=== PATIENT | male | born 1945 | race Caucasian/White ===

== ENCOUNTER 2017-11-07 12:47 | Outpatient (RCR) | payer BC, MEDICARE, SELFPAY | END 2017-11-16 23:59 | disposition home or self-care (01) | LOC: PRC 12:47 | PROVIDERS: Visit Provider Internal Medicine | DX: J44.9 Chronic obstructive pulmonary disease, unspecified (principal); Z51.89 Encounter for other specified aftercare ==

== ENCOUNTER 2017-12-04 10:18 | Outpatient (RCR) | payer BC, MEDICARE, SELFPAY | END 2017-12-17 23:59 | disposition home or self-care (01) | LOC: PRC 10:18 | PROVIDERS: Visit Provider Internal Medicine | DX: J44.9 Chronic obstructive pulmonary disease, unspecified (principal); Z51.89 Encounter for other specified aftercare | CPT/HCPCS: G0424 ==

== ENCOUNTER 2017-12-18 12:47 | Outpatient (RCR) | payer BC, MEDICARE, SELFPAY | END 2018-01-16 23:59 | disposition home or self-care (01) | LOC: PRC 12:47 | DX: J44.9 Chronic obstructive pulmonary disease, unspecified (principal) | CPT/HCPCS: G0424 ==

== ENCOUNTER 2018-01-14 02:00 | Outpatient (RCR) | payer BC, MEDICARE, SELFPAY | END 2018-01-16 23:59 | disposition home or self-care (01) | LOC: PRC 02:00 | PROVIDERS: Visit Provider Family Medicine | DX: J44.9 Chronic obstructive pulmonary disease, unspecified (principal); Z51.89 Encounter for other specified aftercare | CPT/HCPCS: G0424 ==

== ENCOUNTER 2018-01-21 09:54 | Outpatient (RCR) | payer BC, MEDICARE, SELFPAY | END 2018-02-16 23:59 | disposition home or self-care (01) | LOC: PRC 09:54 | PROVIDERS: Visit Provider Family Medicine | DX: J44.9 Chronic obstructive pulmonary disease, unspecified (principal); Z51.89 Encounter for other specified aftercare | CPT/HCPCS: G0424 ==

== ENCOUNTER 2018-03-20 11:56 | Outpatient (RCR) | payer OTHER, SELFPAY | END 2018-04-17 16:29 | LOC: PRC 11:56 | PROVIDERS: Visit Provider Family Medicine | DX: J44.9 Chronic obstructive pulmonary disease, unspecified (principal); Z51.89 Encounter for other specified aftercare | CPT/HCPCS: G0424 ==

== ENCOUNTER 2018-04-18 15:22 | Outpatient (RCR) | payer BC, MEDICARE, SELFPAY | END 2018-05-17 23:59 | disposition home or self-care (01) | LOC: PRC 15:22 | PROVIDERS: Visit Provider Family Medicine | DX: J44.9 Chronic obstructive pulmonary disease, unspecified (principal); Z51.89 Encounter for other specified aftercare | CPT/HCPCS: G0424 ==

== ENCOUNTER 2018-05-18 05:53 | Outpatient (RCR) | payer OTHER, SELFPAY | END 2018-06-16 23:59 | disposition home or self-care (01) | LOC: PRC 05:53 | PROVIDERS: Visit Provider Family Medicine | DX: J44.9 Chronic obstructive pulmonary disease, unspecified (principal); Z51.89 Encounter for other specified aftercare | CPT/HCPCS: G0424 ==

== ENCOUNTER 2018-06-17 04:38 | Outpatient (RCR) | payer OTHER, SELFPAY | END 2018-07-17 23:59 | disposition home or self-care (01) | LOC: PRC 04:38 | PROVIDERS: Visit Provider Family Medicine | DX: J44.9 Chronic obstructive pulmonary disease, unspecified (principal); Z51.89 Encounter for other specified aftercare | CPT/HCPCS: G0424 ==

== ENCOUNTER 2024-01-26 15:37 | Outpatient (CLI) | payer OTHER, SELFPAY ==
--- NOTE | 2024-01-26 14:45 | DI.RAD_ITS ---
Exam(s) XR HIP LT COMPLETE AP PELVIS EXAM: XR HIP LT COMPLETE AP PELVIS CLINICAL HISTORY: L hip pain. TECHNIQUE: 2D digital imaging was performed. Two views. COMPARISON: No exams were available for comparison FINDINGS: BONES: No acute fracture is present. No bony destructive lesion is seen. JOINTS: No dislocation present. Moderate to severe narrowing of the left hip joint space. Mild megan articular spurring. The right hip joint space is maintained. Pubic symphysis unremarkable. SOFT TISSUE: Vascular calcifications. Vasectomy clips. Surgical clips low pelvis. High-density mat erial noted in sigmoid colon within diverticula. IMPRESSION: Advanced degenerative changes of the left hip. DATA REPOSITORY: RADIATION DOSE DELIVERED:
== END 2024-01-26 15:38 | disposition home or self-care (01) ==
LOC: DIORS 15:37
PROVIDERS: Visit Provider Physician Assistant
DX: M16.12 Unilateral primary osteoarthritis, left hip (principal)
CPT/HCPCS: 73502

== ENCOUNTER 2024-04-30 00:26 | Outpatient (CLI) | payer OTHER, SELFPAY ==
[2024-04-30 12:21] LABS: HCT 41.1 % (40.0-50.0); HGB 13.5 g/dL (13.5-17.5); MCH 31.2 pg (27.0-33.0); MCHC 32.8 % (32.0-36.0); MCV 95 fL (80-95); MPV 9.5 fL (8.0-11.0); Platelet Count 180 10^3/uL (130-400); RBC 4.33 10^6/uL (4.36-5.78); RDW 11.9 % (11.8-14.1); RDW-SD 41.3 fL; WBC 4.91 10^3/uL (4.4-10.8)
[2024-04-30 13:02] LABS: Anion Gap 9.3 mmol/L (3-11); BUN 28 mg/dL (7-18); CO2 25.7 mmol/L (21.0-32.0); CREATININE 1.6 mg/dL (0.70-1.30); Calcium 9.2 mg/dL (8.5-10.1); Chloride 105 mmol/L (98-107); Estimated GFR 43.29 (mL/min/1.73m2); Glucose 126 mg/dL (74-106); Potassium 4.9 mmol/L (3.5-5.1); Sodium 140 mmol/L (136-145)
== END 2024-04-30 00:27 | disposition home or self-care (01) ==
PROVIDERS: Visit Provider Student in an Organized Health Care Education/Training Program
DX: M16.12 Unilateral primary osteoarthritis, left hip (principal); Z01.818 Encounter for other preprocedural examination
CPT/HCPCS: 36415; 80048; 85027

== ENCOUNTER 2024-05-04 08:20 | Day surgery (SDC) | payer OTHER, SELFPAY ==
[2024-05-04] VITALS (29 sets, daily range): BP systolic 101–164; BP diastolic 50–124; PULSE 42–68; RESP 12–31; TEMP 36.2–36.9; O2SAT 94–100; BMI 28.1
--- NOTE | 2024-05-04 08:30 | DI.RAD_ITS ---
Exam(s) XR HIP LT IN OR EXAM: XR HIP LT IN OR CLINICAL HISTORY: Osteoarthritis of left hip. TECHNIQUE: 2D and realtime digital imaging was performed. COMPARISON: CR XR HIP LT COMPLETE AP PELVIS from 01/26/2024 FINDINGS: Hard copy images show placement of a left hip prosthesis. The alignment appears satisfactory. Please see procedure note for details. Fluoro time: 27.2seconds RADIATION DOSE DELIVERED: Ka,r=2.98 mGy
[2024-05-04] MEDS: Acetaminophen 500 MG TAB 1000 MG PO (09:13)
[2024-05-04] MEDS: Celecoxib 200 MG CAP 400 MG PO (09:13)
--- NOTE | 2024-05-04 09:22 | W.PM.DSUDISC ---
Date of service: 05/04/24 Discharge Plan Disposition Patient Disposition: Home Condition: Good Discharge Details Reason For Visit: left hip DJD Attending Provider: Macario Allison Primary Care Provider: [facility],[place] Home Meds and New Rx's Prescriptions: New meloxicam 15 mg tablet 15 mg PO DAILY Qty: 30 1RF Rx Instructions: Take one tablet daily for pain and inflammation aspirin 81 mg tablet,delayed release (DR/EC) 81 mg PO BID 30 Days Qty: 60 0RF pantoprazole 40 mg tablet,delayed release (DR/EC) 40 mg PO DAILY Qty: 14 0RF dexamethasone 4 mg tablet 4 mg PO DAILY Qty: 2 0RF Rx Instructions: Take one tablet once daily for two days docusate sodium [Colace] 100 mg capsule 100 mg PO BID Qty: 30 0RF oxycodone 5 mg tablet 5 mg PO Q6H PRNQty: 12 0RF Rx Instructions: Take one tablet up to every 6 hours as needed for severe postoperative pain acetaminophen 500 mg tablet 1,000 mg PO Q8H PRN Qty: 90 0RF Rx Instructions: Take two tablets up to every 8 hours as needed for pain Continued PreserVision AREDS 4,296 mcg-226 mg-90 mg capsule 1 cap PO BID amlodipine 5 mg tablet 10 mg PO DAILY albuterol sulfate 90 mcg/actuation HFA aerosol inhaler 2 puff inhalation Q6H PRN carboxymethylcellulose sodium 0.5 % drops 1 drp ophthalmic (eye) QID losartan 50 mg tablet 100 mg PO DAILY simethicone [Gas Relief (simethicone)] 80 mg tablet,chewable 80 mg PO BID-QID PRN omega 2-yxd-sdm-fish oil [Fish Oil] 1,000 (120-180) mg capsule 1 cap PO BID rosuvastatin 40 mg tablet 40 mg PO HS Discontinued acetaminophen 500 mg tablet 1,000 mg PO Q8H PRN PRN aspirin 81 mg tablet,delayed release (DR/EC) 81 mg PO DAILY Discharge Instructions Additional Instructions: Total Hip Discharge Instructions Activity: The most important activity is to walk. You should try to take short walks a few times a day. You have no restrictions on movement or positioning, but do not try to force what you do. You will find some stiffness and weakness with hip flexion (lifting your knee). Do not try to strengthen this too early, continue to practice walking and stairs and this will come. - Outpatient physical therapy can be helpful to help return you to a normal gait and improve your flexibility and strength. This can start around 2 weeks. For some patients, it?s not necessary. Usually this is determined at the time of discharge or at the first post-operative visit. - You should wear the LUISITO hose on both legs for 2 weeks. Dressing: Keep the surgical dressing in place for at least one week. After the first week it may be removed and replace with light gauze and tape or nothing. It may get wet after 3 days but avoid soaking the dressing. If it gets wet, just lightly pat dry. It is important to always keep some gauze between skin folds, especially when you are sitting. Spend some time with the wound exposed when you are lying flat as the incision does wrinkle onto itself. Medications: - You should take Tylenol and an anti-inflammatory Meloxicam as your primary pain control medications. If the Meloxicam is too expensive or not covered, please call the office for another alternative (Advil/Ibuprofen or Naproxen/Aleve). - You have been prescribed a stronger pain medication Oxycodone for breakthrough pain, take as needed as prescribed. - You have also been prescribed a stomach acid reduction agent Pantoprozole to help reduce stomach acid and reflux. - You have also been prescribed Decadron to help with post-operative nausea and pain. You will take this for two days starting tomorrow. - You will be taking Aspirin 81mg twice a day for DVT prevention unless instructed otherwise. - If you have constipation you should take Colace (which has been prescribed) or Miralax (which is available [id number]). It takes most people 3-4 days to have a bowel movement. Follow-up: 2 weeks If you have any acute concerns or questions, please do not hesitate to contact the office at [phone]. You may contact Dr. Allison with any questions after hours through the hospital at [phone] or on his cell phone at [phone]. Referrals: Macario Allison MD [ [facility] STAFF PHYSICIAN] - Equipment/Supplies: Walker Activity:: Elevate Remove Dressings/Wound Care:: Do Not Remove Shower/Bathe:: Cover Diet:: As Tolerated Discharge Orders Discharge Orders: Discharge Order (Routine); Ordered 05/04/24 Ordered By: Elizabeth Garcia
[2024-05-04] MEDS: Lactated Ringers 1,000 ML 80 ML IV (09:33)
--- NOTE | 2024-05-04 09:53 | W.ANESPRE ---
General Info Date of Service Date Performed: 05/04/24 Height: 5 ft 7 in Weight: 81.5 kg Body Mass Index (BMI): 28.1 Surgical Procedure: Operation Date: 05/04/24 11:35 Proposed Procedure Side Surgeon p Hip Total Hip Anterior Left Macario Allison MD Meds Allergies and Home Medications Allergies Allergy/AdvReac Type Severity Reaction Status Date / Time atorvastatin AdvReac Intermediate Other (See Verified 05/04/24 08:53 Comment) Home Medication ?Medication ?Instructions ?Recorded acetaminophen 500 mg tablet 1,000 mg PO Q8H PRN PRN 12/09/23 albuterol sulfate 90 mcg/actuation 2 puff inhalation Q6H PRN 12/09/23 aerosol inhaler amlodipine 5 mg tablet 10 mg PO DAILY 12/09/23 carboxymethylcellulose sodium 0.5 1 drp ophthalmic (eye) QID 12/09/23 % eye drops losartan 50 mg tablet 100 mg PO DAILY 12/09/23 omega 5-igz-vzp-fish oil 1,000 mg 1 cap PO BID 12/09/23 (120 mg-180 mg) capsule (Fish Oil) simethicone 80 mg chewable tablet 80 mg PO BID-QID PRN 12/09/23 (Gas Relief (simethicone)) vitamins A,C,D-uncu-jkcdpu 4,296 1 cap PO BID 01/26/24 mcg-226 mg-90 mg capsule (PreserVision AREDS) rosuvastatin 40 mg tablet 40 mg PO HS 02/24/24 aspirin 81 mg tablet,delayed 81 mg PO BID 30 days #60 tabs 05/04/24 release dexamethasone 4 mg tablet 4 mg PO DAILY #2 tabs 05/04/24 docusate sodium 100 mg capsule 100 mg PO BID #30 caps 05/04/24 (Colace) meloxicam 15 mg tablet 15 mg PO DAILY #30 tabs 05/04/24 oxycodone 5 mg tablet 5 mg PO Q6H PRN #12 tabs 05/04/24 pantoprazole 40 mg tablet,delayed 40 mg PO DAILY #14 tabs 05/04/24 release Current Visit Medications: Current Medications Generic Name Dose Route Start Last Admin Trade Name Freq PRN Reason Stop Dose Admin Acetaminophen 1,000 mg 05/04/24 06:00 05/04/24 09:13 Acetaminophen 500 Mg Tab PO 05/04/24 23:59 1,000 mg PREOP NICHOLAS Administration Celecoxib 400 mg 05/04/24 06:00 05/04/24 09:13 Celecoxib 200 Mg Cap PO 05/04/24 23:59 400 mg PREOP NICHOLAS Administration Hydromorphone HCl 0.5 mg 05/04/24 07:29 Hydromorphone 2 Mg/Ml Syr IVP 06/03/24 07:28 Q2H PRN PRN Ringer's Solution 1,000 mls @ 80 mls/hr 05/04/24 06:00 05/04/24 09:33 IV 05/04/24 23:59 80 mls/hr INFUSION NICHOLAS Administration Cefazolin Sodium/Dextrose 2 gm in 50 mls @ 100 mls/hr 05/04/24 06:00 Ancef Duplex IVPB 05/04/24 23:59 PREOP NICHOLAS Tranexamic Acid/Sodium Chloride 1,000 mg in 100 mls @ 600 mls/hr 05/04/24 06:00 IVPB 05/04/24 23:59 PREOP NICHOLAS Cefazolin Sodium/Dextrose 1 gm in 50 mls @ 100 mls/hr 05/04/24 08:00 Ancef Duplex IVPB 05/05/24 00:29 Q8H NICHOLAS IV Miscellaneous Supplies 1 each 05/04/24 06:00 Iv Access IV 05/04/24 23:59 DIRECTED NICHOLAS Oxycodone HCl 0 mg 05/04/24 07:29 Oxycodone 5 Mg Tab PO 06/03/24 07:28 Q3H PRN PRN Pain Sodium Chloride 0 ml 05/04/24 06:00 Normal Saline Flush 10 Ml Syr IV 05/04/24 23:59 PRN PRN Sodium Chloride 0 ml 05/04/24 06:00 Normal Saline 10 Ml Vial IJ 05/04/24 23:59 DIRECTED PRN Sterile Water 0 ml 05/04/24 06:00 Water,Injection,Sterile 10 Ml Vial IJ 05/04/24 23:59 DIRECTED PRN PFSH Active Problems Active Problems: Problem Status Onset Code Macular degeneration (senile) of retina Acute H35.30 MAVERICK (obstructive sleep apnea) Chronic G47.33 Heberden's nodes Acute M15.1 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 Obesity Chronic E66.9 CKD (chronic kidney disease) Chronic N18.9 Sensorineural hearing loss (SNHL), bilateral Acute H90.3 Osteoarthritis of left hip Acute M16.12 Medical History Medical History Prostate cancer Lumbar spinal stenosis Hypertension Surgical History Surgical History (Updated 04/30/24 @ 15:38 by Sergey Mark) History of parathyroid surgery adenoma removed 03/31/2024-cleared by endocrinology for ALESSANDRA on 05/04/24 (Note in system from [place]) History of umbilical hernia repair History of laparoscopic cholecystectomy History of radical retropubic prostatectomy History of coronary artery bypass graft 2001 Tobacco Smoking/Tobacco Use Status: Never Alcohol Alcohol Intake: current Alcohol intake frequency: 0-2 drinks per day Alcohol type: wine Substance Use Substance use: Never Substance use type: does not use Vital Signs and Lab Results Vital Signs Most Recent Vital Signs in EMR: Most Recent Vital Signs Temp Pulse Resp BP Pulse Ox 36.7 C 68 18 109/82 99 05/04/24 09:04 05/04/24 09:04 05/04/24 09:04 05/04/24 09:04 05/04/24 09:04 Lab Results Blood Type / Crossmatch: No Data to Display Complete Blood Count: White Blood Count 4.91 10^3/uL (4.4-10.8) 04/30/24 12:14 Red Blood Count 4.33 10^6/uL (4.36-5.78) L 04/30/24 12:14 Hemoglobin 13.5 g/dL (13.5-17.5) 04/30/24 12:14 Hematocrit 41.1 % (40.0-50.0) 04/30/24 12:14 Platelet Count 180 10^3/uL (130-400) 04/30/24 12:14 Complete Metabolic Panel: Sodium 140 mmol/L (136-145) 04/30/24 12:14 Potassium 4.9 mmol/L (3.5-5.1) 04/30/24 12:14 Chloride 105 mmol/L (98-107) 04/30/24 12:14 Carbon Dioxide 25.7 mmol/L (21.0-32.0) 04/30/24 12:14 BUN 28 mg/dL (7-18) H 04/30/24 12:14 Creatinine 1.6 mg/dL (0.70-1.30) H 04/30/24 12:14 Est GFR (CKD-EPI 2020) 43.29 (mL/min/1.73m2) 04/30/24 12:14 Calcium 9.2 mg/dL (8.5-10.1) 04/30/24 12:14 Glucose 126 mg/dL (74-106) H 04/30/24 12:14 Liver Function Panel: No Data to Display Coagulation Panel: No Data to Display Cardiac Panel: No Data to Display Arterial Blood Gas: No Data to Display Venous Blood Gas: No Data to Display Pancreas Panel: No Data to Display Thyroid Panel: No Data to Display Infectious Disease: No Data to Display Blood Cultures: No Data to Display Toxicology Panel: No Data to Display Anesthesia Assessment and Plan Anesthesia History Personal History: Awareness Under Anesthesia Family History: Other Exercise Tolerance Exercise Tolerance: Metabolic Equivalents<4 Pertinent Negatives Pertinent Negatives: No Symptoms of GERD (controlled with meds) Cardiac & Pulmonary Exam Cardiac Exam: Normal S1/S2 Heart Sounds Pulmonary Exam: Clear Bilateral Breath Sounds (dyspnea on exertion, MAVERICK with O2 at night) Cardiac and Pulmonary Comment:: Chronic angina, [facility] PCP and Cardiology clearance Implantable Cardiac Device Does patient have a Pacemaker or an ICD?: No Airway Exam Known Difficult Airway: No Mallampati Class: 3 Mouth Opening: Normal (> 3cm) Thyromental Distance: Greater than 3 cm Neck Range of Motion: Full ROM Neck Circumference: Normal Teeth Condition: Edentulous (left dentures ar home) ASA Classification ASA Score: ASA 3 Emergency Case?: No NPO Status NPO Status: NPO Clears >2 hours, Solids >8 hours Anesthesia Plan Resuscitation Status: Full Code Anesthesia Technique: Spinal Anesthesia Airway Planned: Natural Airway Monitors Used: Standard Monitors Preoperative Comments:: SAB only if easy and direct, will have low threshold for conversion to GETA. Discussed with patient that even though a history of lumbar radiculopathy, his chronic lung status warrants at least a try for a spinal. Patient agrees.
[2024-05-04] MEDS: ceFAZolin 2 GM/50 ML BAG IVPB (10:35)
[2024-05-04] MEDS: TRANEXAMIC ACID/SOD. CHL. 1,000 MG/100 ML BAG 600 MG IVPB (10:46)
--- NOTE | 2024-05-04 12:25 | ROE_ITS ---
Operative Note Operative Note PRE-OP DIAGNOSIS: Left Hip Osteoarthritis POST-OP DIAGNOSIS: same PROCEDURE: Left Anterior Total Hip Arthroplasty with Intraoperative Navigation SURGEON: Macario Allison LABOR AND DELIVERY REGISTERED NURSE: Elizabeth Garcia ANESTHESIA TYPE: Spinal Refer to Anesthesia Record ESTIMATED BLOOD LOSS: 100 PATHOLOGY: none sent TOURNIQUET TIME: 0 COMPLICATIONS: None Patient was transported to: PACU Patient's condition: stable Implants: 1. Depuy [place] Acetabular Component, 54mm 2. Depuy Acetabular Liner, 10p49te 3. Depuy Actis Standard Collared Femoral Stem, Size 5 4. Depuy Altrx Ceramic Femoral Head, Size 36+5mm Indications: I have seen Bertrand in clinic for symptoms of hip arthritis, confirmed with radiographic findings. He has exhausted nonoperative methods and was having significant limitations in daily function and desired better function and less pain. I discussed the technical details of a hip replacement. I explained the risks of the procedure to include, but not limited to, bleeding, infection, pain, stiffness, fracture, damage to nerves and vessels, damage to muscles and tendons, loosening, instability, leg length inequality, need for repeat procedure, blood clot and cardiopulmonary demise. Despite these risks, Bertrand elected to proceed. Findings: There was significant signs of arthritis throughout the hip, most notably of the superior femoral head. Procedure Description: Bertrand was greeted in the preoperative holding area where the correct side was identified and marked. The consent was reviewed with the patient and signed. The history and physical was updated. All questions were answered. He was taken back to the operating room. A spinal anesthestic was then administered. The feet were wrapped with cast padding and Coban and then placed into the boot liners and then into the boots. Care was taken to protect the skin and make sure the heels were fully down and the boots were stable. The patient was then positioned onto the HANA table. Both legs were held in a neutral position. SCDs were applied. The patient was then slid down onto a peroneal post. Prophylactic antibiotics in the form of Cefazolin were administered. 1g of Tranxemic Acid was given intravenously within 30 minutes of incision. The left leg was then prepped with Chloraprep and draped in a standard fashion. A second prep with Chloraprep was performed prior to placement of a shower-curtain type drape with Iodine impregnated skin protection. A timeout to confirm correct identity, side and site, procedure, allergies, anesthesia, and medical concerns was performed. An obliquely oriented incision was made starting lateral to the ASIS and running distal over the Tensor Fascia Tere (TFL) muscle belly toward the fibular head, approximately 10cm. The skin and soft tissue was dissected sharply, through Moris?s fascia, and to the fascia of the TFL. With the fascia and superior border of the IT band identified, the fascia was incised with a new knife just above any perforators from the IT band. The TFL muscle belly was bluntly dissected away from the fascia and moved laterally. The fat between TFL and rectus was identified to ensure the dissection was not within the TFL. Blunt dissection created space between abductors and the capsule and retractor was placed over the lateral femoral neck. The fibers of the rectus femoris tendon were identified and these were freed from the anterior capsule. A second cobra retractor was placed around the medial femoral neck. The TFL was further retracted laterally to show the deep fascia. Careful dissection through this layer identified three main crossing vessels of the lateral femoral circumflex. These were cauterized in multiple locations and then cut without any noticeable bleeding. The TFL was further released bluntly from the deep fascia to expose anterior hip capsule and fat The soft tissue orthopaedic retractor was then placed beneath the TFL and against sartorius and medial soft tissues to protect and retract the soft tissues. A T-capsulotomy was then performed starting at the superior lateral acetabulum and moving distally to the intertrochanteric ridge. These capsular flaps were tagged with a No. 1 Vicryl and elevated from within. The capsular flaps were released to the shoulder of the lateral neck and to the lesser trochanter to give excellent visualization of the proximal femur. A neck osteotomy was performed using an oscillating saw based on preoperative templates. This cut started in the shoulder and of the lateral neck and exited medially. The saw was at all times directed medially to avoid injury to the greater trochanter. Gross traction was applied to the leg and the osteotomy opened. The femoral head was removed with a corkscrew, making sure to protect the TFL on its exit. Traction was released after head removal. This was measured on the back table to determine the starting reamer size. Portions of the rectus obscuring visualization were minimally elevated off the superior acet abulum. An anterior retractor was placed over the anterior wall between capsule and labrum and attached to the Gripper retraction system. The femur was rotated to 90 degrees and medial capsule was fully released until the lesser trochanter was palpable and visible; the femur was returned to 30 degrees. A posterior retractor was placed similarly between capsule and labrum. This provided excellent visualization. The contents of the cotyloid fossa were removed with electrocautery and the labrum was removed with a knife. There was significant chondromalacia of the superior acetabulum. Acetabular reaming began with a 48mm reamer. This first reaming was directed anterior to posterior and medial to get down to the true floor. This was inspected and reamed until the true floor was reached. The anterior retractor was then released and entry and exit was provided by traction on the capsular flaps. I then reamed sequentially up to a 54mm reamer where good fit was obtained. The larger reamers were oriented based on anatomical reference of the anterior and lateral turk to ensure proper abduction and anteversion. Positioning and size was confirmed with the fluoroscopy. A 54mm Depuy [place] acetabular component was selected. The acetabulum was reamed around the periphery with the selected acetabular size to prevent a rim fit. The deep tissues were irrigated. The acetabular component was then impacted in a position of about 40-45 degrees of abduction and 15-20 degrees of anteversion, using the patient?s anatomy as the ultimate landmark. Fluoroscopy was used to confirm this. There was excellent certified breastfeeding educator of the acetabular component and the inserting handle was removed. The acetabular liner, Depuy [id number] polyethylene liner, was inserted and lined up with the tines of the acetabular component. There was no soft tissue interposition. The liner was then impacted into position and confirmed to be well-seated. A portion of the megan-articular cocktail was then injected around the acetabulum into the capsule and periosteum. This cocktail consisted of 123mg of Ropivacaine, 0.25mg of Epinephrine, 0.04mg of Clonidine, and 15mg of Ketorolac, diluted to 50cc. The leg was rotated to 120 degrees. Any remaining medial capsule was released until the lesser trochanter was easily palpable. A retractor was placed medially. The lateral capsule was further released into the shoulder to allow access to the greater trochanter. A Ghotra retractor was placed over the greater trochanter which allowed the trochanter to flip in front of the capsule for excellent exposure. The leg was brought down into maximal extension and 20 degrees of adduction while ensuring there was no impingement on the acetabulum. Any remnant capsule within the trochanter was released. Piriformis and obturator externis were identified and protected. There was excellent access to the proximal femur. The lateral neck remnant was removed with a rongeur. A blunt canal probe was used to identify the canal and trajectory for later broaching. A box osteotome initiated the broach course. A small curved rasp and a curved curette were used to work laterally. Broaching then began with a starter Actis broach. This was inserted manually around the trochanter and into the canal before mallet blows. The broach was seated to a few millimeters below the cut level based on the neck cut and the preoperative template. Sequential broaching was continued with the Business Combined pneumatic broaching device until a tight fit was obtained with good rotational control of the femur. A trial stand fabrizio neck was inserted along with a +5 trial head. The leg was brought out of extension and adduction and then reduced with traction and internal rotation. The leg was stable anteriorly in a position of 30 degrees of extension and 90 degrees of external rotation. Fluoroscopy was used to ensure there was no fracture and the stem was seated well. Leg lengths were checked with an AP pelvis and pelvic reference points. Nanosphere navigation system was used to confirm appropriate positioning and leg length and offset. This accurately recreated the offset but over-corrected the leg length, thus the broach was advanced another 5mm. Once content with the desired offset and leg lengths, the leg was brought back into extension, external rotation and adduction. The periosteum and surrounding tissue was injected with remaining portion of the megan-articular cocktail. The proximal femur was irrigated as well as the deep tissues. The J Squared Mediauy Actis standard collared stem, size 5, was then manually inserted into the proximal femur making sure to control rotation. It was then malleted into position with light blows, giving breaks to allow bone expansion and decrease risk of fracture. The selected Depuy Altrx Ceramic Head, size 36+5mm, was then placed onto the clean and dry trunnion and secured with impaction onto the tapered fit. The leg was brought back out of extension and adduction and reduced with traction and internal rotation. Stability was confirmed with no shuck at 90 degrees of external rotation and 30 degrees of extension. No impingement through range of motion arc. Final x-ray images were obtained with fluoroscopy to confirm adequate positioning and no intraoperative fracture. The deep tissues were thoroughly irrigated with Surgiphor, betadine solution. This was allowed to sit in the wound for 3 minutes before being thoroughly irrigated out with normal saline. The capsule was then reapproximated with the previously placed sutures and the indirect head of the rectus was inspected and reapproximated with a #1 Vicryl. The TFL fascia was finally closed with a No. 2 Stratafix, barbed suture. Deep tissues were then reapproximated with 0 Vicryl and a running 2-0 Vicryl. The skin was closed with a running 4-0 Monocryl in a subcuticular fashion. This was reinforced with skin glue. A Mepilex silver dressing was applied. At the end of the case, all counts were correct. Bertrand was transferred to the hospital bed without difficulty and suffering no apparent complication. Bertrand has a good prognosis. Physical therapy will start today and without restrictions, weight-bearing as tolerated. Aspirin 81mg BID will be used for DVT prophylaxis. Date of Procedure: 05/04/24
[2024-05-04] MEDS: fentaNYL 100 MCG/2 ML VIAL IVP ×2 (12:44→12:55)
[2024-05-04] MEDS: Normal Saline 10 ML VIAL IJ (13:07)
[2024-05-04] MEDS: HYDROmorphone 2 MG/ML SYR IVP (13:07)
--- NOTE | 2024-05-04 14:10 | W.ANESPOSTOP ---
Postoperative Evaluation Date, Time and Location Date Performed: 05/04/24 Time Performed: 13:20 Patient Location: PACU Vital Signs Most Recent Imported Vital Signs: Most Recent Vital Signs Temp Pulse Resp BP Pulse Ox 36.3 C L 53 L 17 144/65 H 98 05/04/24 13:27 05/04/24 13:27 05/04/24 13:27 05/04/24 13:27 05/04/24 13:27 Pain Score Most Recent Pain Score: Most Recent Pain Score Pain Level 4 05/04/24 13:27 Assessment Mental Status: Awake (Alert & Oriented to Patient Baseline) Airway and Respiratory Function: Patent airway with normal (patient baseline) respiratory exam Cardiovascular Function: Hemodynamically Stable Hydration Status: Adequately Hydrated Nausea & Vomiting: No Nausea or Vomiting Pain: Pain is tolerable per patient Peripheral Nerve Block: Patient did not receive a nerve block
--- NOTE | 2024-05-04 15:01 | PT.INIE ---
PT Notes Visit Reasons: left hip DJD Physical Therapy Day Surgery Initial Evaluation Date: 05/04/2024 Referring Doctor: Elizabeth Garcia PT Orders: PT CONSULT:s/p Ortho surgery Precautions: WBAT left LE teds x 2 weeks,[place] Patient Profile/Admitting Diagnosis: Patient is 78-year-old male presenting status post elective left ALESSANDRA under spinal anesthesia postop uncomplicated PMHX: Macular degeneration (senile) of retina (Acute) MAVERICK (obstructive sleep apnea) (Chronic) Heberden's nodes (Acute) Testicular hypogonadism (Acute) Obesity (Chronic) CKD (chronic kidney disease) (Chronic) Sensorineural hearing loss (SNHL), bilateral (Acute) Osteoarthritis of left hip (Acute) POCUS INJECTION: 01/26/2024 Medical History (Updated 01/26/24 @ 15:30 by ISHA Slaughter) Prostate cancer Lumbar spinal stenosis Hypertension Surgical History (Updated 12/09/23 @ 09:36 by Edith Whittington RN) History of umbilical hernia repair History of laparoscopic cholecystectomy History of radical retropubic prostatectomy History of coronary artery bypass graft Social History/Home Situation: Patient resides in a single-family home with his with 4 steps to enter with bilateral rails. Patient independent ambulation, ADLs. Patient's assists with meal prep and shopping driving. Equipment Owned/DME: Rollator, FWW Subjective: Patient reports his right ear is blocked and having increased difficulty hearing as he does not have his hearing aids with him. Objective: [] General Observation: Male semireclined in stretcher ice to left hip and visiting. Mental Status: Alert and oriented x 4, cooperative, able to follow instructions. Patient agreeable to participate in evaluation Pain: 3/10 left hip ROM: Right Lower Extremity: WFL Left Lower Extremity: Knee and ankle within functional limits, hip flexion 90 degrees, abduction 15 degrees internal rotation to neutral Strength: Right Lower Extremity: 5/5 grossly Left Lower Extremity: Hip flexion: 3/5; hip abduction: 3 -/5; hip extension: 3 -/5; knee extension: >3/5; knee flexion: 3 -/5 ankle DF: >3 /5 ; ankle PF: >3 /5 Sensation: Intact Bed Mobility/Transfers: Supine to sit supervision Sit to stand supervision with cues for hand placement Stand to sit supervision with cues for hand placement Bed to chair supervision with FWW Gait: Ambulates with FWW with standby assist 150 feet reciprocal pattern slight antalgic gait initially on left with report of burning sensation to lateral thigh which resolved after 40 feet. Patient noted with increased weightbearing through bilateral upper extremities to unweight left lower extremity. Patient with slight circumduction of left lower extremity and absent heel strike foot flat at weight acceptance. Stairs: 2 steps x 2 with bilateral rails contact-guard assist step to pattern. Balance: Static Sitting: Normal Dynamic Sitting: Good Static Standing: Good Dynamic Standing: Fair plus Special Tests: [] Mobility Limitations Standardized Measure [] [facility] AM-PAC 6 clicks Basic Mobility Inpatient Short Form: [] Raw Score: 21 CMS Score: 28.97% Informed Consent/Education: Patient instructed in purpose of PT consult. Packet containing ALESSANDRA exercise protocol has been given to patient. Education and training on initial set of exercises that can be done at home have been completed with patient. present during performance of stairs and feels comfortable providing contact-guard assist at this time. Assessment: Patient presented with mild report of burning sensation to lateral left thigh initially upon ambulation which resolved. Patient with excess weightbearing through bilateral upper extremities to unweight left lower extremity during ambulation. Patient presents with clinical signs and symptoms consistent with current/admitting diagnoses that have resulted to mobility limitations, gait instability, generalized weakness, and impairment of motor control as demonstrated by the following impairment level findings: 1. Decreased strength to left hip major muscle groups 2. Impaired standing balance 3. Limitation of joint range of motion in left hip 4. Decline in functional activity tolerance Impairments are contributing to the following functional limitations: 1. Inability to safely ambulate without assistive device 2. Increase completion time for mobility ADL performance 3. Increased fall risk 4. Difficulty performing stairs safely without assistance Patient is assessed as a moderate complexity based on the following: History: 78-year-old male with impairment level findings, functional limitations, and past medical history as indicated above Examination: Demonstrable impairment in strength, balance, and mobility level with underlying impairments and functional limitations as documented above Presentation: Stable/evolving Decision Making: Moderate Goals: N/A. Plan of Care/Treatment Plan: N/A. DISCHARGE RECOMMENDATIONS: Home with HEP. Pt may benefit from outpatient PT after Surgical f/u. TREATMENT CODE/TIME: [id number] Thank you for the opportunity to participate in the care of this patient. Delores Kenney PT [facility]
== END 2024-05-04 15:33 | disposition home or self-care (01) ==
PROVIDERS: Referring Provider Family Medicine; Visit Provider Student in an Organized Health Care Education/Training Program
PROC: (CPT 27130; principal; 2024-05-04 11:15)
DX: M16.12 Unilateral primary osteoarthritis, left hip (principal); Z68.38 Body mass index [BMI] 38.0-38.9, adult; N18.9 Chronic kidney disease, unspecified; I12.9 Hypertensive chronic kidney disease with stage 1 through stage 4 chronic kidney disease, or unspecified chronic kidney disease; E66.9 Obesity, unspecified; G47.33 Obstructive sleep apnea (adult) (pediatric)
CPT/HCPCS: 27130; 20985; 97162; 73501; C1776; J0690; J1100; J1171; J2003; J2250; J2371; J2401; J2405; J2704; J3010

== ENCOUNTER 2024-05-17 16:01 | Outpatient (CLI) | payer OTHER, SELFPAY ==
--- NOTE | 2024-05-17 13:15 | DI.RAD_ITS ---
Exam(s) XR HIP LT COMPLETE AP PELVIS EXAM: XR HIP LT COMPLETE AP PELVIS CLINICAL HISTORY: 1ST POST OP S/P L ALESSANDRA. TECHNIQUE: 2D digital imaging was performed. COMPARISON: CR XR HIP LT COMPLETE AP PELVIS from 01/26/2024 XA XR HIP LT IN OR from 05/04/2024 Images of 05/04/2024. FINDINGS: Two views Satisfactory position alignment of the components of the recently placed left hip prosthesis. No fra cture or loosening evident. IMPRESSION: Stable satisfactory appearance of the recently placed components of the left hip prosthesis DATA REPOSITORY: RADIATION DOSE DELIVERED:
== END 2024-05-17 16:02 | disposition home or self-care (01) ==
LOC: DIORS 16:02
PROVIDERS: PCP Specialist/Technologist Athletic Trainer; Visit Provider Student in an Organized Health Care Education/Training Program
DX: Z96.642 Presence of left artificial hip joint (principal); Z47.1 Aftercare following joint replacement surgery
CPT/HCPCS: 73502

== ENCOUNTER 2024-10-21 07:01 | Day surgery (SDC) | payer OTHER, SELFPAY ==
[2024-10-21] VITALS (55 sets, daily range): BP systolic 122–162; BP diastolic 59–80; PULSE 53–67; RESP 10–25; TEMP 36.2–36.9; O2SAT 89–98; BMI 28.3
--- NOTE | 2024-10-21 07:05 | W.PM.OP ---
Operative Note Operative Note PRE-OP DIAGNOSIS: Left: 1. Rotator cuff arthropathy 2. Proximal biceps partial tearing PROCEDURE: Left: 1. Reverse total shoulder arthroplasty, CPT # 72406 2. Open biceps tenodesis, CPT # 25762 The data control assistant was medically required as this procedure involves retraction, protection of neurovascular structures, and manipulation of multiple instruments and implants at the same time, which cannot be done without a skilled data control assistant. SURGEON: Pool Ruelas TRACE EVIDENCE TECHNICIAN: Loc Aguayo ANESTHESIA TYPE: Local By Surgeon, General LMA/ETT and Primary Nerve Block Refer to Anesthesia Record ESTIMATED BLOOD LOSS: 150 COMPLICATIONS: None Patient was transported to: PACU Patient's condition: stable Implants: [employer]Prospects shoulder system Small modular baseplate with 30 mm central screw 30, 15, and 15 mm peripheral locking screws 40 mm +4 mm glenosphere Medium standard length stem +0 mm humeral shell and +4 mm retentive liner Indications: See medical record for details Findings: Significant partial biceps tearing, relatively intact subscapularis, high-grade trans tendinous supraspinatus tearing, relatively intact infraspinatus. High-grade degeneration and fowler labral tearing. Procedure Description: In the operating room, general anesthesia was induced. The patient was positioned beachchair on the operating room table. All bony prominences were well-padded. Preoperative antibiotics were administered. The shoulder was prepped and draped in the usual sterile fashion for shoulder arthroplasty. The correct patient, procedure, and side of the procedure were all verified prior to incision. The deltopectoral approach was preinjected with 0.25% bupivacaine containing epinephrine and taken to the anterior shoulder. Care was taken to bluntly dissect the interval between the deltoid and pectoralis major muscles and to identify the cephalic vein within its fat stripe. The cephalic vein had multiple crossing branches. Some smaller were coagulated and others were preserved and mobilized laterally. Subdeltoid space and conjoined tendon were freed of adhesions. The long head of the biceps tendon was identified just lateral to the lesser tuberosity. The uppermost margin of the pectoralis major tendon was released from the proximal humerus. The diminutive remnant was still mobile so this portion of the long head of the biceps tendon was tenodesed in situ using SutureTape in a gnzypc-xy-[id number] fashion securing it superior margin the pectoralis major tendon. The biceps tendon was amputated and followed proximally to identify the rotator interval. A subscapularis tenotomy was performed taking care to release the entire tendon from superior to inferior while bringing the arm gradually into external rotation. Care was taken to avoid the axillary nerve by only working on the bone inferiorly and medially. The supraspinatus was torn and largely removed and infraspinatus were debrided of partial tearing to a stable margin. Appropriate coagulation was achieved especially interiorly. The anatomic neck was cut using an oscillating saw with the humeral head bone brought back table in case there was a need for future bone grafting. Attention was then turned to the glenoid and retractors were placed and a circumferential release performed removing soft tissue about the glenoid rim. Care was taken inferiorly to work on bone only between 5 and 7:00 o'clock and bluntly elevate tissues inferiorly. The glenoid was sized and guidepin inserted accounting for patient version and inclination. The guidepin was advanced just through the far cortex ensuring adequate central fixation length. The one step prep glenoid reamer was then used to prepare glenoid according to habitat management coordinator specifications. The baseplate was impacted onto the glenoid surface. The central compression screw was placed. The central screw typing checker was used to confirm the central screw was fully seated. The locking guide was then used to drill and place appropriately lengthed inferior, anterior, and posterior screws. The [id number] reamer was used to achieve adequate peripheral reaming. The glenosphere was applied with the hand inserter operator and impacted to engage the Kerr taper. It was then locked with appropriate countersinking of the setscrew. The glenosphere had good fit, appropriate positioning, and no soft tissue or bony impingement. The proximal humerus was delivered from the wound with adduction and external rotation. The humerus was sized and pin placed. Reaming and blazing were done over the pin. The stem pin punch was used through the blazer to confirm distal path and complete preparation. The final stem was impacted into place. Trialing was started with a +0 mm shell and liner. The shoulder was reduced and taken through range of motion. Trial components were built up to +4 mm liner to achieve good stability and appropriate tension on the deltoid and conjoined tendon. Trial shell and liner were removed. The final shell was impacted onto the humeral stem and final liner was clicked into place. Retentive liner was chosen due to deficient rotator cuff. The shoulder was reduced and range of motion, stability, and tension confirmed. The shoulder was copiously irrigated with Betadine and normal saline. Vancomycin powder was distributed deeply about the shoulder and through subcutaneous tissues. The deltopectoral interval was approximated with 2-0 Monocryl burying the cephalic vein. Subcutaneous tissue was irrigated then closed using 2-0 Monocryl in a buried interrupted fashion. Skin was closed using 3-0 Monocryl in a buried subcuticular fashion. Skin glue was applied to the incision. A silver impregnated bandage was placed over the incision. The extremity was placed into a shoulder immobilizer. The patient awoke from anesthesia without complication and was taken to the recovery room in stable condition. Date of Procedure: 10/21/24
--- NOTE | 2024-10-21 07:15 | PDOC.DSDIS_ITS ---
Date of service: 10/21/24 Discharge Plan Disposition Patient Disposition: Home Condition: Stable Discharge Details Attending Provider: Pool Ruelas Primary Care Provider: Roosevelt Calderon Home Meds and New Rx's Prescriptions: New naproxen 250 mg tablet 250 mg PO BID PRN (Reason: Moderate pain) Qty: 25 0RF tramadol 50 mg tablet 50 mg PO TID PRNQty: 14 0RF Continued PreserVision AREDS 4,296 mcg-226 mg-90 mg capsule 1 cap PO BID famotidine 10 mg tablet 10 mg PO BID aspirin [Adult Aspirin Regimen] 81 mg tablet,delayed release (DR/EC) 81 mg PO DAILY amitriptyline 25 mg tablet 25 mg PO DAILY losartan 50 mg tablet 50 mg PO DAILY amlodipine 5 mg tablet 10 mg PO DAILY albuterol sulfate 90 mcg/actuation HFA aerosol inhaler 2 puff inhalation Q6H PRN carboxymethylcellulose sodium 0.5 % drops 1 drp ophthalmic (eye) QID simethicone [Gas Relief (simethicone)] 80 mg tablet,chewable 80 mg PO BID-QID PRN omega 9-vbj-xic-fish oil [Fish Oil] 1,000 (120-180) mg capsule 1 cap PO BID rosuvastatin 40 mg tablet 40 mg PO HS cyanocobalamin (vitamin B-12) 1,000 mcg capsule 1,000 mcg PO DAILY calcium citrate 200 mg (950 mg) tablet 200 mg PO BID docusate sodium [Colace] 100 mg capsule 100 mg PO BID Qty: 30 0RF acetaminophen 500 mg tablet 1,000 mg PO Q8H PRN Qty: 90 0RF Rx Instructions: Take two tablets up to every 8 hours as needed for pain Discharge Instructions Additional Instructions: Surgery: Left reverse total shoulder arthroplasty (retentive liner) with biceps tenodesis 10/21/2024 Activity: Do not lift anything heavier than a coffee. You should keep your arm at your side in a relatively neutral position at all times except for gentle range of motion exercises, physical therapy, and essential activities. You should use the sling whenever you are out of the house. At home it is best to remove the sling and rest the arm on a pillow at your side or support the operative side with your other hand. A physical therapy prescription will be sent electronically to start in about 3 weeks. STANDARD Reverse TSA Protocol. Resume home aspirin tomorrow morning Prescriptions: Naproxen 250 mg take 1 every 12 hours with a meal as needed for moderate pain Tramadol 50 mg take 1 every 8 hours as needed for severe pain You may use prkk-qia-xubvzai Tylenol (acetaminophen) as needed for mild pain. These pain medications may be taken all at once or in different combinations as needed. Also, recommend Colace (docusate) as a stool softener as surgery and pain medicine cause constipation. You may try jsbe-suo-lvoezyl diphenhydramine (Benadryl) 25-50 mg nightly as a sleep aid Dressings: Leave dressing in place until follow-up. Keep clean and dry at all times. No showers please. Follow-up: 10-[address] Ruelas You may take off the leg compression stockings this evening at home. You may also leave them on a few days longer if you have a history of leg swelling or edema. Please call the office during business hours with any questions or concerns. Let us know right away if you develop any redness, drainage, fevers, chest pain, or trouble breathing. Do not drink alcohol or drive for at least 24 hours after anesthesia. Stand Alone Forms: Anesthesia Discharge Inst., Idris Pineda (U) Referrals: Pool Ruelas MD [ [facility] STAFF PHYSICIAN, Orthopaedic Surgical] - 11/02/24 1:15 pm Discharge Orders Discharge Orders: Discharge Order (Routine); Ordered 10/21/24 Ordered By: Loc Aguayo DS: Diagnosis Discharge Diagnosis (1) Rotator cuff arthropathy of left shoulder: Status: Acute (2) Tendinitis of long head of biceps brachii of left shoulder: Status: Acute
[2024-10-21] MEDS: Lactated Ringers 1,000 ML 30 ML IV (08:15)
--- NOTE | 2024-10-21 08:34 | W.ANESPRE ---
General Info Date of Service Date Performed: 10/21/24 Height: 5 ft 7 in Weight: 82.2 kg Body Mass Index (BMI): 28.3 Surgical Procedure: Operation Date: 10/21/24 11:10 Proposed Procedure Side Surgeon p Shoulder Reverse Total Arthroplasty, Biceps Tenodesis Left Pool Ruelas MD Meds Allergies and Home Medications Allergies Allergy/AdvReac Type Severity Reaction Status Date / Time atorvastatin AdvReac Intermediate Other (See Verified 10/20/24 11:20 Comment) Home Medication ?Medication ?Instructions ?Recorded albuterol sulfate 90 mcg/actuation 2 puff inhalation Q6H PRN 12/09/23 aerosol inhaler amlodipine 5 mg tablet 10 mg PO DAILY 12/09/23 carboxymethylcellulose sodium 0.5 1 drp ophthalmic (eye) QID 12/09/23 % eye drops omega 4-xvn-dfu-fish oil 1,000 mg 1 cap PO BID 12/09/23 (120 mg-180 mg) capsule (Fish Oil) simethicone 80 mg chewable tablet 80 mg PO BID-QID PRN 12/09/23 (Gas Relief (simethicone)) vitamins A,C,Y-vtre-irmlcg 4,296 1 cap PO BID 01/26/24 mcg-226 mg-90 mg capsule (PreserVision AREDS) rosuvastatin 40 mg tablet 40 mg PO HS 02/24/24 acetaminophen 500 mg tablet 1,000 mg (2 x 500 mg) PO Q8H PRN 05/04/24 pain #90 tabs docusate sodium 100 mg capsule 100 mg PO BID #30 caps 05/04/24 (Colace) calcium citrate 200 mg PO BID 06/21/24 cyanocobalamin (vitamin B-12) 1,000 mcg PO DAILY 06/21/24 1,000 mcg capsule amitriptyline 25 mg tablet 25 mg PO DAILY 10/19/24 aspirin 81 mg tablet,delayed 81 mg PO DAILY 10/19/24 release (Adult Aspirin Regimen) famotidine 10 mg tablet 10 mg PO BID 10/19/24 losartan 50 mg tablet 50 mg PO DAILY 10/19/24 naproxen 250 mg tablet 250 mg PO BID PRN Moderate pain 10/21/24 #25 tabs tramadol 50 mg tablet 50 mg PO TID PRN #14 tabs 10/21/24 Current Visit Medications: Current Medications Generic Name Dose Route Start Last Admin Trade Name Freq PRN Reason Stop Dose Admin Acidophilus/Pectin 1 cap 10/21/24 14:00 Lactobacillus Acidophilus Cap PO 10/21/24 14:01 DAILY ONE Ringer's Solution 1,000 mls @ 30 mls/hr 10/21/24 06:00 10/21/24 08:15 IV 10/21/24 23:59 30 mls/hr INFUSION NICHOLAS Administration Cefazolin Sodium/Dextrose 2 gm in 50 mls @ 100 mls/hr 10/21/24 06:00 Ancef Duplex IVPB 10/21/24 23:59 PREOP NICHOLAS Tranexamic Acid/Sodium Chloride 1,000 mg in 100 mls @ 600 mls/hr 10/21/24 06:00 IVPB 10/21/24 23:59 PREOP NICHOLAS Cefazolin Sodium/Dextrose 1 gm in 50 mls @ 100 mls/hr 10/21/24 14:00 Ancef Duplex IVPB 10/21/24 14:29 NOW ONE IV Miscellaneous Supplies 1 each 10/21/24 06:00 Iv Access IV 10/21/24 23:59 DIRECTED NICHOLAS Sodium Chloride 0 ml 10/21/24 06:00 Normal Saline Flush 10 Ml Syr IV 10/21/24 23:59 PRN PRN Sodium Chloride 0 ml 10/21/24 06:00 Normal Saline 10 Ml Vial IJ 10/21/24 23:59 DIRECTED PRN Sterile Water 0 ml 10/21/24 06:00 Water,Injection,Sterile 10 Ml Vial IJ 10/21/24 23:59 DIRECTED PRN Tramadol HCl 50 mg 10/21/24 07:13 Tramadol 50 Mg Tab PO 11/20/24 07:12 Q6H PRN PRN PFSH Active Problems Active Problems: Problem Status Onset Code Tendinitis of long head of biceps brachii of left shoulder Acute M75.22 Rotator cuff arthropathy of left shoulder Acute M12.812 Macular degeneration (senile) of retina Acute H35.30 MAVERICK (obstructive sleep apnea) Chronic G47.33 Heberden's nodes Acute M15.1 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 Obesity Chronic E66.9 CKD (chronic kidney disease) Chronic N18.9 Sensorineural hearing loss (SNHL), bilateral Acute H90.3 Osteoarthritis of left hip Acute M16.12 Medical History Medical History (Updated 10/21/24 @ 09:35 by Alondra Quick) Prostate cancer Lumbar spinal stenosis Hypertension Surgical History Surgical History (Updated 10/21/24 @ 09:38 by Alondra Quick) History of hand surgery left w/ hardware History of carpal tunnel release 12/10 History of cataract surgery History of total left hip arthroplasty 05/11 History of parathyroid surgery adenoma removed 03/31/2024-cleared by endocrinology for ALESSANDRA on 05/04/24 ([facility]) History of umbilical hernia repair History of laparoscopic cholecystectomy History of radical retropubic prostatectomy History of coronary artery bypass graft no stents-2001 Tobacco Smoking/Tobacco Use Status: Never Alcohol Alcohol Intake: current Alcohol intake frequency: 0-2 drinks per day Alcohol type: wine Substance Use Substance use: Never Substance use type: does not use Vital Signs and Lab Results Vital Signs Most Recent Vital Signs in EMR: Most Recent Vital Signs Temp Pulse Resp BP Pulse Ox 36.7 C 67 16 134/67 96 10/21/24 07:08 10/21/24 07:08 10/21/24 07:08 10/21/24 07:08 10/21/24 07:08 Imaging and Studies Imaging and Studies Study information below may be from another EMR and interpreted by another provider. Please see original notes in EMR for more complete details. 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 Consistent with previous ekg Anesthesia Assessment and Plan Anesthesia History Personal History: Awareness Under Anesthesia Family History: No Family History of Anesthesia Complications Exercise Tolerance Exercise Tolerance: Metabolic Equivalents<4 Pertinent Negatives Pertinent Negatives: No Symptoms of GERD (controlled with medication) and No Major Cardiovascular Symptoms or Complaints Cardiac & Pulmonary Exam Cardiac Exam: Normal S1/S2 Heart Sounds Pulmonary Exam: Active Dry Cough Cardiac and Pulmonary Comment:: Chronic cough, occasional productive Implantable Cardiac Device Does patient have a Pacemaker or an ICD?: No Airway Exam Known Difficult Airway: No Mallampati Class: 3 Mouth Opening: Normal (> 3cm) Thyromental Distance: Greater than 3 cm Facial Hair: Full [place] Neck Range of Motion: Limited ROM Neck Circumference: Normal Teeth Condition: Edentulous (left dentures ar home) ASA Classification ASA Score: ASA 3 Emergency Case?: No NPO Status NPO Status: NPO Clears >2 hours, Solids >8 hours Anesthesia Plan Resuscitation Status: Full Code Anesthesia Technique: General Anesthesia Airway Planned: Endotracheal Tube Monitors Used: Standard Monitors and SedLine
[2024-10-21] MEDS: ceFAZolin 2 GM/50 ML BAG IVPB (09:58)
[2024-10-21] MEDS: TRANEXAMIC ACID/SOD. CHL. 1,000 MG/100 ML BAG 600 MG IVPB (10:10)
[2024-10-21] MEDS: Bupivacaine 0.25% Pres-Free W/EPI 30 ML VIAL (12:03)
[2024-10-21] MEDS: Vancomycin 1,000 MG VIAL 1000 MG (12:04)
[2024-10-21] MEDS: fentaNYL 100 MCG/2 ML VIAL IVP ×2 (13:00→13:12)
[2024-10-21] MEDS: ACETAMINOPHEN 1,000 MG/100 ML BAG 400 MG IVPB (13:19)
[2024-10-21] MEDS: HYDROmorphone 2 MG/ML SYR IVP ×5 (13:25→14:09)
--- NOTE | 2024-10-21 13:30 | DI.RAD_ITS ---
Exam(s) XR SHOULDER LT COMPLETE 2+V EXAM: XR SHOULDER LT COMPLETE 2+V INDICATION: Reverse TSA instability. COMPARISON: CT CT UPPER EXTREMITY LT WO from 08/03/2024 TECHNIQUE: 2D digital imaging was performed. Two views. Portable FINDINGS: A reverse shoulder prosthesis has been placed. The alignment appears satisfactory. There is residual postsurgical air in the soft tissues. DATA REPOSITORY: RADIATION DOSE DELIVERED:
[2024-10-21] MEDS: ceFAZolin 1 GM/50 ML BAG IVPB (14:06)
--- NOTE | 2024-10-21 14:58 | W.ANESPOSTOP ---
Postoperative Evaluation Date, Time and Location Date Performed: 10/21/24 Time Performed: 14:59 Patient Location: Day Surgery Unit Vital Signs Most Recent Imported Vital Signs: Most Recent Vital Signs Temp Pulse Resp BP Pulse Ox 36.5 C 60 12 134/71 95 10/21/24 14:26 10/21/24 14:26 10/21/24 14:26 10/21/24 14:10/21/24 14:26 Pain Score Most Recent Pain Score: Most Recent Pain Score Pain Level 3 10/21/24 14:21 Assessment Mental Status: Awake (Alert & Oriented to Patient Baseline) Airway and Respiratory Function: Patent airway with normal (patient baseline) respiratory exam Cardiovascular Function: Hemodynamically Stable Hydration Status: Adequately Hydrated Nausea & Vomiting: No Nausea or Vomiting Pain: Pain is tolerable per patient Peripheral Nerve Block: Patient did not receive a nerve block
[2024-10-21] MEDS: traMADol 50 MG TAB PO (15:08)
[2024-10-21] MEDS: Lactobacillus Acidophilus CAP 1 CAP PO (15:08)
== END 2024-10-21 16:37 | disposition home or self-care (01) ==
PROVIDERS: PCP Specialist/Technologist Athletic Trainer; Visit Provider Student in an Organized Health Care Education/Training Program
PROC: (CPT 23472; principal; 2024-10-21 11:00)
DX: M12.812 Other specific arthropathies, not elsewhere classified, left shoulder (principal); M75.22 Bicipital tendinitis, left shoulder; S46.222A Laceration of muscle, fascia and tendon of other parts of biceps, left arm, initial encounter; X58.XXXA Exposure to other specified factors, initial encounter
CPT/HCPCS: 23472; 23430; 73030; J0131; J0690; J1100; J1171; J2003; J2371; J2405; J2704; J3010; J3373

== ENCOUNTER 2024-11-02 13:42 | Outpatient (CLI) | payer OTHER, SELFPAY ==
--- NOTE | 2024-11-02 13:00 | DI.RAD_ITS ---
Exam(s) XR SHOULDER LT COMPLETE 2+V EXAM: XR SHOULDER LT COMPLETE 2+V CLINICAL HISTORY: F/U LEFT RTSA. TECHNIQUE: 2D digital imaging was performed. Two images were obtained. Grashey and Y views were obtained. 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 No fracture or dislocation. JOINTS: The orthopedic hardware is in good position. No evidence of hardware loosening. SOFT TISSUE: Normal. IMPRESSION: Stable left reversed total shoulder arthroplasty. DATA REPOSITORY: RADIATION DOSE DELIVERED:
== END 2024-11-02 13:43 | disposition home or self-care (01) ==
LOC: DIORS 13:42
PROVIDERS: PCP Specialist/Technologist Athletic Trainer; Visit Provider Student in an Organized Health Care Education/Training Program
DX: M12.812 Other specific arthropathies, not elsewhere classified, left shoulder (principal); Z96.612 Presence of left artificial shoulder joint
CPT/HCPCS: 73030

== ENCOUNTER 2024-11-11 14:55 | Outpatient (CLI) | payer OTHER, SELFPAY ==
--- NOTE | 2024-11-11 14:30 | DI.RAD_ITS ---
Exam(s) XR SHOULDER LT COMPLETE 2+V EXAM: XR SHOULDER LT COMPLETE 2+V INDICATION: F/U LEFT RTSA. COMPARISON: CR XR SHOULDER LT COMPLETE 2+V from 11/02/2024 TECHNIQUE: 2D digital imaging was performed. Two views. FINDINGS: The alignment of the shoulder prosthesis appears stable given differences in projection. No visible surrounding bony lucencies. DATA REPOSITORY: RADIATION DOSE DELIVERED:
== END 2024-11-11 14:56 | disposition home or self-care (01) ==
LOC: DIORS 14:55
PROVIDERS: PCP Specialist/Technologist Athletic Trainer; Visit Provider Student in an Organized Health Care Education/Training Program
DX: M12.812 Other specific arthropathies, not elsewhere classified, left shoulder (principal)
CPT/HCPCS: 73030

== ENCOUNTER 2024-12-29 14:35 | Outpatient (CLI) | payer OTHER, SELFPAY ==
--- NOTE | 2024-12-29 13:45 | DI.RAD_ITS ---
Exam(s) XR SHOULDER RT COMPLETE 2+V EXAM: XR SHOULDER RT COMPLETE 2+V CLINICAL HISTORY: RIGHT SHOULDER PAIN. TECHNIQUE: 2D digital imaging was performed. Two views. COMPARISON: CR XR SHOULDER LT COMPLETE 2+V from 11/11/2024 FINDINGS: BONES: No acute fracture is present. No bony destructive lesion is seen. JOINTS: No dislocation present. Glenohumeral joint space is maintained. There is mild spurring at the glenoid. No significant spurring at the AC joint. SOFT TISSUE: Normal. 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 DATA REPOSITORY: RADIATION DOSE DELIVERED:
== END 2024-12-29 14:36 | disposition home or self-care (01) ==
LOC: DIORS 14:35
PROVIDERS: PCP Specialist/Technologist Athletic Trainer; Visit Provider Student in an Organized Health Care Education/Training Program
DX: M25.511 Pain in right shoulder (principal); M19.011 Primary osteoarthritis, right shoulder
CPT/HCPCS: 73030

== ENCOUNTER 2025-01-19 13:45 | Outpatient (CLI) | payer OTHER, SELFPAY ==
--- NOTE | 2025-01-19 13:15 | DI.RAD_ITS ---
Exam(s) XR SHOULDER LT COMPLETE 2+V EXAM: XR SHOULDER LT COMPLETE 2+V CLINICAL HISTORY: F/U LEFT RTSA. TECHNIQUE: 2D digital imaging was performed. Two images were obtained. Grashey and Y views were obtained. 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 No fracture or dislocation. JOINTS: The orthopedic hardware is in good position. No evidence of hardware loosening. SOFT TISSUE: Normal. IMPRESSION: Stable left reversed total shoulder arthroplasty. DATA REPOSITORY: RADIATION DOSE DELIVERED:
== END 2025-01-19 13:46 | disposition home or self-care (01) ==
LOC: DIORS 13:45
PROVIDERS: PCP Specialist/Technologist Athletic Trainer; Visit Provider Student in an Organized Health Care Education/Training Program
DX: M12.812 Other specific arthropathies, not elsewhere classified, left shoulder (principal); Z96.612 Presence of left artificial shoulder joint
CPT/HCPCS: 73030